=== PATIENT | female | born 1955 | race Caucasian/White ===

== ENCOUNTER 2018-09-05 16:51 | Emergency (ER) | payer OTHER ==
[2018-09-05 17:03] VITALS: PULSE 65; TEMP 98.2
--- NOTE | 2018-09-05 17:35 | XR ---
EXAMINATION TYPE: XR hand complete LT DATE OF EXAM: 09/05/2018 COMPARISON: NONE HISTORY: Metacarpal pain TECHNIQUE: 3 views FINDINGS: I see no fracture nor dislocation. Metacarpals are intact. There are no erosions. IMPRESSION: Negative left hand exam.
[2018-09-05 17:43] VITALS: BP 111/63
--- NOTE | 2018-09-05 17:56 | ED ---
General Adult HPI - General Chief complaint: Extremity Injury, Upper Stated complaint: [facility] - LEFT HAND INJURY Time Seen by Provider: 09/05/18 17:31 Source: patient, RN notes reviewed Mode of arrival: ambulatory Limitations: no limitations - History of Present Illness Initial comments: Patient is a 63-year-old female who presents the emergency department with complaints of left hand pain since earlier today when she tripped moving a table at work and fell. Denies knee pain. Denies any difficulty moving her upper extremities. Patient denies any recent head trauma, loss of consciousness , neck pain, fever, chills, shortness of breath, chest pain, back pain, abdominal pain, nausea or vomiting, numbness or tingling, headaches or visual changes, or any other complaints. - Related Data Allergies Allergy/AdvReac Type Severity Reaction Status Date / Time codeine AdvReac Nausea & Verified 09/05/18 17:03 Vomiting Review of Systems ROS Statement: Those systems with pertinent positive or pertinent negative responses have been documented in the HPI. ROS Other: All systems not noted in ROS Statement are negative. Past Medical History Past Medical History: Hyperlipidemia History of Any Multi-Drug Resistant Organisms: None Reported Additional Past Surgical History / Comment(s): right hip Past Psychological History: No Psychological Hx Reported Smoking Status: Never smoker Past Alcohol Use History: Occasional Past Drug Use History: None Reported General Exam Limitations: no limitations General appearance: alert, in no apparent distress Head exam: Present: atraumatic, normocephalic Eye exam: Present: normal appearance Respiratory exam: Present: normal lung sounds bilaterally Cardiovascular Exam: Present: regular rate, normal rhythm Extremities exam: Present: normal inspection, full ROM, normal capillary refill Neurological exam: Present: alert, oriented X3 Psychiatric exam: Present: normal affect, normal mood Skin exam: Present: warm, dry Course Vital Signs 09/05/18 09/05/18 16:59 17:41 Temperature 98.2 F Pulse Rate 65 Respiratory 18 Rate Blood Pressure 157/94 111/63 O2 Sat by Pulse 98 Oximetry Medical Decision Making - Medical Decision Making X-ray of left hand reveals no fracture or dislocation. Patient would like to go back to work this evening. Case discussed in detail with attending physician Dr. Parker. Disposition Clinical Impression: Contusion of left hand Disposition: HOME SELF-CARE Condition: Good Instructions: Contusion in Adults (ED) Additional Instructions: Follow-up with PCP in 2 days. Follow-up with [facility] in 1-2 days. Return to emergency department if symptoms worsen or any other concerns. Is patient prescribed a controlled substance at d/c from ED?: No Referrals: Dov Beltran MD [Primary Care Provider] - 1-2 days Time of Disposition: 18:06
[2018-09-05 18:19] VITALS: RESP 12
== END 2018-09-05 18:17 | disposition home or self-care (01) ==
LOC: EC 16:51
DX: S60.222A Contusion of left hand, initial encounter (principal); Z88.5 Allergy status to narcotic agent; W01.0XXA Fall on same level from slipping, tripping and stumbling without subsequent striking against object, initial encounter; Y93.89 Activity, other specified; Y92.69 Other specified industrial and construction area as the place of occurrence of the external cause; Y99.0 Civilian activity done for income or pay
CPT/HCPCS: 99283

== ENCOUNTER 2021-03-01 17:39 | Emergency (ER) | payer MEDICARE, OTHER ==
[2021-03-01 17:51] VITALS: TEMP 97.9
[2021-03-01 18:43] VITALS: BP 164/74; PULSE 88; RESP 18
--- NOTE | 2021-03-01 18:44 | ED ---
General Adult HPI - General Chief complaint: Eye Problems Stated complaint: poss mini stroke/sent by urgent care Time Seen by Provider: 03/01/21 18:15 Source: patient Mode of arrival: wheelchair Limitations: no limitations - History of Present Illness Initial comments: Dictation was produced using [employer] dictation software. please excuse any gramma tical, word or spelling errors. This patient was cared for during a federal and state declared state of emergency secondary to Covid 19 Chief Complaint: 66-year-old female presents to the emergency department for left eye vision changes History of Present Illness: 66-year-old female she presents to the emergency department for vision changes. Patient states that her symptoms began at approximately 9 AM this morning while she was driving. She states she was driving in her vehicle. She looked over to the left to try and on rollover window when all of a sudden her vision became dark. She states shortly after she saw some floaters to the lower lateral portion of left visual field. Patient has no eye pain. She has no headache. Patient denies any medical problems. The ROS documented in this emergency department record has been reviewed and confirmed by me. Those systems with pertinent positive or negative responses have been documented in the HPI. All other systems are other negative and/or noncontributory. PHYSICAL EXAM: General Impression: Alert and oriented x3, not in acute distress HEENT: Normocephalic atraumatic, extra-ocular movements intact, pupils equal and reactive to light bilaterally, mucous membranes moist. Cardiovascular: Heart regular rate and rhythm Chest: Able to complete full sentences, no retractions, no tachypnea Abdomen: abdomen soft, non-tender, non-distended, no organomegaly Musculoskeletal: Pulses present and equal in all extremities, no peripheral edema Motor: no focal deficits noted Neurological: CN II-XII grossly intact, no focal motor or sensory deficits noted Skin: Intact with no visualized rashes Psych: Normal affect and mood Funduscopic exam: exam is limited however there does appear to be signs of retinal detachment ED course: 14-year-old female presents to the emergency department with vision changes to the left eye beginning at 9 AM today. As upon arrival are within acceptable limits. Visual acuity is 20/30 on the left and 20/25 on the right. Case was discussed with Dr. Maya who came into the emergency department to evaluate the patient. He reports he did observe a small retinal tear in the 8-9 o'clock region. I instructed the patient to follow up with him in the office tomorrow for further management. - Related Data Home Medications Medication Instructions Recorded Confirmed Cholecalciferol [Vitamin D3 (25 25 mcg PO DAILY 03/01/21 03/01/21 Mcg = 1000 Iu)] Fish Oil/Dha/Epa [Fish Oil 1,200 1 tab PO DAILY 03/01/21 03/01/21 mg Fish Oil] Glucosam/Dejon-Msm1/C/Zach/Bosw 1 tab PO DAILY 03/01/21 03/01/21 [Glucosamine-Chondroitin Tablet] Multivitamins, Thera [Multivitamin 1 tab PO DAILY 03/01/21 03/01/21 (formulary)] Allergies Allergy/AdvReac Type Severity Reaction Status Date / Time codeine AdvReac Nausea & Verified 03/01/21 19:53 Vomiting Review of Systems ROS Statement: Those systems with pertinent positive or pertinent negative responses have been documented in the HPI. ROS Other: All systems not noted in ROS Statement are negative. Past Medical History Past Medical History: Hyperlipidemia History of Any Multi-Drug Resistant Organisms: None Reported Additional Past Surgical History / Comment(s): right hip Past Psychological History: No Psychological Hx Reported Smoking Status: Never smoker Past Alcohol Use History: Occasional Past Drug Use History: None Reported General Exam Limitations: no limitations Course Vital Signs 03/01/21 03/01/21 17:47 18:41 Temperature 97.9 F Pulse Rate 87 88 Respiratory 16 18 Rate Blood Pressure 161/71 164/74 O2 Sat by Pulse 98 97 Oximetry Disposition Clinical Impression: Retinal tear Disposition: HOME SELF-CARE Condition: Fair Instructions (If sedation given, give patient instructions): Surgery for Retinal Detachment (DC) Additional Instructions: Sleep with head of bed up. Is patient prescribed a controlled substance at d/c from ED?: No Referrals: Lionel Maya MD [STAFF PHYSICIAN] - 03/02/21
[2021-03-01] MEDS ORDERED: TROPICAMIDE 1% OPHTH DROPS 2 ML BTL BOTH EYES STA (19:20)
--- NOTE | 2021-03-01 22:52 | P.PN ---
Subjective Progress Note Date: 03/01/21 Principal diagnosis: sudden Vitreous floaters and photopsia This is a 66 y/o female who about 2-3 weeks ago had slipped and fallen without consequence. Today while driving she suddenly became aware of something to her left eye and in her visual field. There was a shower of reddish-brown and a flash noted. There was no discomfort and no major change in vision. she normally undergoes routine eye exams with [facility] and has dilated exams. There is no known underlying problem, and no previous surgery. Va w/ correction 20/20 OD, and 20/30 OS. 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 Recommend sleeping with head elevated slightly tonight. Objective - Vital Signs Vital signs: Vital Signs Temp 97.9 F 03/01/21 17:47 Pulse 88 03/01/21 18:41 Resp 18 03/01/21 18:41 BP 164/74 03/01/21 18:41 Pulse Ox 97 03/01/21 18:41 Intake & Output 03/01/21 03/01/21 03/02/21 06:59 18:59 06:59 Weight 127.006 kg
== END 2021-03-01 20:26 | disposition home or self-care (01) ==
LOC: EC 17:39
DX: H33.312 Horseshoe tear of retina without detachment, left eye (principal); M32.9 Systemic lupus erythematosus, unspecified; I73.9 Peripheral vascular disease, unspecified; E78.5 Hyperlipidemia, unspecified; Z88.5 Allergy status to narcotic agent
CPT/HCPCS: 99282

== ENCOUNTER → 2023-06-07 | Day surgery (SDC) | payer MEDICARE ==
[2023-06-01 14:25] VITALS: BMI 35.5
[~2023-06-07] MED LIST: BALANCED SALT IRRIG SOLN COMB2 15 ML IRRIG.SOLN INTRAOCULA ONE; EPINEPHrine (PF) 0.3 ML in BALANCED SALT IRRIG SOLN COMB2 500 ML IRRIGATION ONE; HYALURONATE SODIUM INTRAOCULAR 1 EACH SYRINGE (12MG/ML) INTRAOCULA ONE; LACTATED RINGERS 1,000 ML IV ONE; LACTATED RINGERS 1,000 ML IV SCH; LIDOCAINE 1% (PF) 10MG/ML VIAL MISCELLANE ONE; MIDAZOLAM 2 MG/2 ML VIAL ONE; MOXIFLOXACIN HCL 0.5% DROPS 3 ML BTL OP PRN; TETRACAINE 0.5% OPHTH (PF) DROPS 4 ML BTL OP PRN; TIMOLOL 0.5% OPHTH DROPS 5 ML BTL OP PRN; fentaNYL (PF) 50 MCG/ML 2 ML AMP ONE
[2023-06-07 08:50] VITALS: TEMP 97.4
[2023-06-07] MEDS: CYCLOPENTOLATE 1% OPHTH SOLN 2 ML BTL OP PRN ×3 (08:56→09:08)
[2023-06-07] MEDS: PHENYLEPHRINE 2.5% OPHTH DRP 2ML OP PRN ×3 (08:59→09:11)
[2023-06-07 09:12] LABS: Glucose,Whole Blood 102 mg/dL (70-110)
--- NOTE | 2023-06-07 10:15 | P.OP ---
Date of Procedure: 06/07/23 Preoperative Diagnosis: NS Postoperative Diagnosis: same Procedure(s) Performed: PIOL< OD Implants: MX60E 23.50 Anesthesia: MAC Surgeon: Lioenl Maya Pathology: none sent Condition: stable Disposition: same day Indications for Procedure: blurry vision Operative Findings: no complications
[2023-06-07 10:24] VITALS: BP 132/72; PULSE 70; RESP 20
--- NOTE | 2023-06-07 14:20 | OP ---
OPERATIVE REPORT DATE OF SERVICE : PREOPERATIVE DIAGNOSIS: Nuclear sclerosis, right eye. POSTOPERATIVE DIAGNOSIS: Nuclear sclerosis, right eye. OPERATION: Phacoemulsification of cataract and interocular lens implant, right eye. ESTIMATED BLOOD LOSS: Zero. SPECIMEN TAKEN: None. NARRATIVE: After obtaining the appropriate consent, the patient was brought to the operating room where the patient was placed under cardiac monitoring and prepped and draped in the usual sterile manner. At the 11 o'clock position, a 15-degree super sharp blade was used to create a paracentesis followed by instillation of 1% Xylocaine MPF 50:50 mix with BSS into the anterior chamber. This was followed by Amvisc viscoelastic to stabilize the anterior chamber. At the 9 o'clock position a self-sealing corneal flap incision was created using 2.8 mm lowell keratome. A cystotome was used to initiate a continuous tear capsulorrhexis which was completed with the Utrata forceps. A Binkhorst cannula was used to hydrodissect the lens nucleus followed by hydrodelineation. Phacoemulsification of the lens was performed utilizing phacochop in 9.29 seconds at 15.9% power. The remaining cortical material was removed using the irrigation aspiration mode followed by additional 1% Xylocaine MPF into the anterior chamber followed by viscoelastic to stabilize the capsular bag. A [employer]ch [employer] Lomb MX60E 23.5 diopters posterior chamber lens was placed into the capsular bag without difficulty. The remaining viscoelastic material was removed from the anterior chamber with the irrigation/aspiration. Balanced salt solution was used to normalize the intraocular pressure. The incision was checked for watertight integrity. The patient then received 2 drops of 0.5% timolol followed by 2 drops Vigamox, was lightly patched and shielded in the usual manner. There were no complications from the procedure. The patient tolerated the procedure well and was returned to recovery in good condition. MMODL / IJN: [id number] /
== END | disposition home or self-care (01) ==
LOC: OR 08:20
PROVIDERS: ATTEND Ophthalmology
DX: H25.11 Age-related nuclear cataract, right eye (principal); K21.9 Gastro-esophageal reflux disease without esophagitis; Z96.1 Presence of intraocular lens; Z88.5 Allergy status to narcotic agent; Z79.899 Other long term (current) drug therapy
CPT/HCPCS: 66984; C1780; J2250; J0171; J3010; J2001

== ENCOUNTER 2023-06-28 06:51 | Day surgery (SDC) | payer MEDICARE ==
[2023-06-27 10:25] VITALS: BMI 35.5
[~2023-06-28 06:51] MED LIST changes: -BALANCED SALT IRRIG SOLN COMB2 15 ML IRRIG.SOLN INTRAOCULA ONE; -EPINEPHrine (PF) 0.3 ML in BALANCED SALT IRRIG SOLN COMB2 500 ML IRRIGATION ONE; -HYALURONATE SODIUM INTRAOCULAR 1 EACH SYRINGE (12MG/ML) INTRAOCULA ONE; -LACTATED RINGERS 1,000 ML IV ONE; +LIDOCAINE 1% (10MG/ML) FOR IV START INTRADERMA PRN; -LIDOCAINE 1% (PF) 10MG/ML VIAL MISCELLANE ONE; -MIDAZOLAM 2 MG/2 ML VIAL ONE; -MOXIFLOXACIN HCL 0.5% DROPS 3 ML BTL OP PRN; -TIMOLOL 0.5% OPHTH DROPS 5 ML BTL OP PRN; -fentaNYL (PF) 50 MCG/ML 2 ML AMP ONE
[2023-06-28] MEDS: PHENYLEPHRINE 2.5% OPHTH DRP 2ML OP PRN ×3 (07:23→07:35)
[2023-06-28] MEDS: CYCLOPENTOLATE 1% OPHTH SOLN 2 ML BTL OP PRN ×3 (07:26→07:38)
[2023-06-28 07:33] LABS: Glucose,Whole Blood 127 mg/dL (70-110)
[2023-06-28 07:38] VITALS: TEMP 97.3
[2023-06-28] MEDS ORDERED: fentaNYL (PF) 50 MCG/ML 2 ML AMP ONE (08:16)
[2023-06-28] MEDS ORDERED: MIDAZOLAM 2 MG/2 ML VIAL ONE (08:16)
[2023-06-28] MEDS ORDERED: BALANCED SALT IRRIG SOLN COMB2 15 ML IRRIG.SOLN INTRAOCULA ONE ×2 (08:19→08:31)
[2023-06-28] MEDS ORDERED: HYALURONATE SODIUM INTRAOCULAR 1 EACH SYRINGE (12MG/ML) INTRAOCULA ONE ×2 (08:19→08:31)
[2023-06-28] MEDS ORDERED: LIDOCAINE 1% (PF) 10MG/ML VIAL MISCELLANE ONE ×2 (08:20→08:31)
[2023-06-28] MEDS ORDERED: EPINEPHrine (PF) 0.3 ML in BALANCED SALT IRRIG SOLN COMB2 500 ML IRRIGATION ONE (08:24)
[2023-06-28] MEDS: MOXIFLOXACIN HCL 0.5% DROPS 3 ML BTL OP PRN ×2 (08:28→08:31)
[2023-06-28] MEDS: TIMOLOL 0.5% OPHTH DROPS 5 ML BTL OP PRN ×2 (08:28→08:31)
--- NOTE | 2023-06-28 08:46 | P.OP ---
Date of Procedure: 06/28/23 Preoperative Diagnosis: NS Postoperative Diagnosis: same Procedure(s) Performed: PIOL, OS Implants: MX60E 23.50 Anesthesia: MAC Surgeon: Lionel Maya Pathology: none sent Condition: stable Disposition: same day Indications for Procedure: blurry vision Operative Findings: no complications
[2023-06-28 09:05] VITALS: BP 110/73; PULSE 62; RESP 16
--- NOTE | 2023-06-29 09:46 | OP ---
OPERATIVE REPORT DATE OF SERVICE : 06/28/2023 PREOPERATIVE DIAGNOSIS: Nuclear sclerosis, left eye. POSTOPERATIVE DIAGNOSIS: Nuclear sclerosis, left eye. OPERATION: Phacoemulsification of cataract and intraocular lens implant of the left eye. ESTIMATED BLOOD LOSS: Zero. SPECIMEN TAKEN: None. NARRATIVE: After obtaining the appropriate consent, the patient was brought to the operating room where the patient was placed under cardiac monitoring and prepped and draped in the usual sterile manner. At the 5 o'clock position, a 15-degree super sharp blade was used to create a paracentesis followed by instillation of 1% Xylocaine MPF 50:50 mix with BSS into the anterior chamber. This was followed by Amvisc viscoelastic to stabilize the anterior chamber. At the 3 o'clock position a self-sealing corneal flap incision was created using 2.8 mm lowell keratome. A cystotome was used to initiate a continuous tear capsulorrhexis which was completed with the Utrata forceps. A Binkhorst cannula was used to hydrodissect the lens nucleus followed by hydrodelineation. Phacoemulsification of the lens was performed utilizing phacochop in 9.07 seconds at 12.8% power. The remaining cortical material was removed using the irrigation aspiration mode followed by additional 1% Xylocaine MPF into the anterior chamber followed by viscoelastic to stabilize the capsular bag. A Bausch [employer] Lomb MX 60E 23.5 diopter posterior chamber lens was placed into the capsular bag without difficulty. The remaining viscoelastic material was removed from the anterior chamber with the irrigation/aspiration. Balanced salt solution was used to normalize the intraocular pressure. The incision was checked for watertight integrity. The patient then received 2 drops of 0.5% timolol followed by 2 drops Vigamox, was lightly patched and shielded in the usual manner. There were no complications from the procedure. The patient tolerated the procedure well and was returned to recovery in good condition. MMODL / IJN: [id number] /
== END 2023-06-28 09:19 | disposition home or self-care (01) ==
LOC: OR 06:51
PROVIDERS: ATTEND Ophthalmology
DX: H25.12 Age-related nuclear cataract, left eye (principal); Z88.5 Allergy status to narcotic agent; Z83.3 Family history of diabetes mellitus; Z82.3 Family history of stroke
CPT/HCPCS: 66984; C1780; J2250; J0171; J3010; J2001